=== PATIENT | female | born 1990 | race Caucasian/White ===

== ENCOUNTER 2024-08-01 09:39 | Emergency (ER) | payer OTHER ==
[2024-08-01 09:52] VITALS: BP 144/103; PULSE 93; RESP 20; TEMP 98.3; BMI 35.3
[2024-08-01] MEDS ORDERED: IBUPROFEN 400 MG TABLET (FP) PO ONE (10:27)
[2024-08-01] MEDS: IBUPROFEN 400 MG TABLET (FP) PO ONE (10:45)
[2024-08-01] MEDS ORDERED: METOCLOPRAMIDE HCL INJECTION 10 MG/2 ML VIAL ONE (12:09)
[2024-08-01] MEDS ORDERED: ACETAMINOPHEN INJECTION 100 ML ONE (12:09)
[2024-08-01] MEDS ORDERED: MECLIZINE HCL 25 MG TABLET (FP) ONE (12:09)
[2024-08-01] MEDS: MECLIZINE HCL 25 MG TABLET (FP) PO ONE (12:22)
[2024-08-01] MEDS: ACETAMINOPHEN 1000 MG/100 ML BAG IVPB ONE (12:22)
[2024-08-01] MEDS: METOCLOPRAMIDE HCL INJECTION 10 MG/2 ML VIAL IVPB ONE (12:23)
[2024-08-01 12:54] LABS: BASO % 0.9 % (0-2.0); EOS % 5.1 % (0-4.5); HEMATOCRIT 36.4 % (32.4-45.2); LYMPH % 25.1 % (8-40); MCH 29.8 pg (25.7-33.7); MEAN CELL VOLUME 90.3 fl (80-96); MEAN PLT VOLUME 9.1 fl (7.5-11.1); MONO % 5.9 % (3.8-10.2); PLATELET COUNT 319 10^3/uL (134-434); RBC 4.03 M/mm3 (3.60-5.2); WHITE BLOOD COUNT 7.2 K/mm3 (4.0-10.0)
[2024-08-01 13:17] LABS: POTASSIUM 3.9 mmol/L (3.5-5.1)
[2024-08-01 13:19] LABS: ALBUMIN 3.6 g/dl (3.4-5.0); BLOOD UREA NITROGEN 7.8 mg/dL (7-18)
[2024-08-01 13:22] LABS: CREATININE 0.6 mg/dL (0.55-1.3)
[2024-08-01 13:23] LABS: BILIRUBIN,TOTAL 0.4 mg/dL (0.2-1)
[2024-08-01 13:24] LABS: TOT PROT 6.8 g/dl (6.4-8.2)
[2024-08-01] MEDS: FLUTICASONE PROP 0.05% 16 GM NASAL SPRAY NS ONE (13:38)
== END 2024-08-01 14:00 | disposition home or self-care (01) ==
LOC: JER 09:39
PROC: 3E033NZ Introduction of Analgesics, Hypnotics, Sedatives into Peripheral Vein, Percutaneous Approach (ICD-10-PCS; principal; 2024-08-01)
PROC: 3E033GC Introduction of Other Therapeutic Substance into Peripheral Vein, Percutaneous Approach (ICD-10-PCS; 2024-08-01)
DX: J32.9 Chronic sinusitis, unspecified (principal); R42 Dizziness and giddiness; R51.9 Headache, unspecified; J30.2 Other seasonal allergic rhinitis; R05.3 Chronic cough; R09.81 Nasal congestion; R11.0 Nausea
CPT/HCPCS: 36415; 80053; 84703; 85025; 93005; 93010; 99284-25; J0131